=== PATIENT | male | born 1935 | race Caucasian/White ===

== ENCOUNTER → 2017-05-03 | Outpatient (CLI) | payer MEDICARE ==
[2017-05-03 10:29] LABS: Blood Urea Nitrogen 18 mg/dL (9-20); Non-African American GFR(MDRD) >60 (>60 ml/min/1.73 sqM)
--- NOTE | 2017-05-03 12:11 | CT ---
EXAMINATION TYPE: CT urogram wo/w con DATE OF EXAM: 05/03/2017 COMPARISON: NONE HISTORY: Gross hematuria. CT DLP: 2566 mGycm, Automated Exposure Control for Dose Reduction was Utilized. CONTRAST: CT scan of the abdomen and pelvis is performed without oral and without and with IV Contrast, patient injected with 100 mL of Omnipaque 300. Urogram protocol with Three-D reconstructed images created on independent workstation and reviewed. FINDINGS: KUB: Noncontrast images show no renal calculi bilaterally. Postcontrast images show symmetric cortica l medullary uptake and excretion from both kidneys without evidence of concerning solid or cystic kristin al mass or hydronephrosis bilaterally. Tiny 3 mm hypodense lesion anteriorly upper pole level left ki dney seen best image 24 series 9 is too small to further characterize per presumed benign. Visualized portion of collecting systems and both ureters show no obvious obstructing mass or calculus. Some po rtions of left mid ureter do not opacify but no obvious soft tissue mass or focal hydroureter is pres ent. Bladder is satisfactorily distended in the midline of pelvis. There is no abnormal intraluminal mass or wall thickening. LUNG BASES: No significant abnormality is appreciated. LIVER/GB: Dependent gallstones are seen in gallbladder.. PANCREAS: No significant abnormality is seen. SPLEEN: No significant abnormality is seen. ADRENALS: Low dense thickening to both adrenal glands favors hyperplasia. BOWEL: Small hiatal hernia is present. Normal-appearing appendix is seen from cecum. PROSTATE/SEMINAL VESICLES: Prostate gland is heterogeneous in appearance and enlarged in size bulging on bladder base, underlying BPH is suspected. Central zone calcifications are seen inferiorly. LYMPH NODES: No greater than 1cm abdominal or pelvic lymph nodes are appreciated. OSSEOUS STRUCTURES: Multilevel moderate spurring throughout the thoracolumbar spine is present. There is moderate multilevel disc space narrowing in the lumbar spine. Facet arthropathy is present lower lumbar levels. Spinal canal effacement or stenosis is most prominent L3-L4 and L4-L5 levels. Moderate joint space loss in both hips is present. OTHER: There is mild atherosclerotic change of infrarenal abdominal aorta. IMPRESSION: 1. No significant finding is seen to account for patient's clinical symptoms of hematuria. Enlarged p rostate gland noted.
== END | disposition home or self-care (01) ==
LOC: RADCTMAIN 09:46
PROVIDERS: ATTEND Urology
DX: N40.0 Benign prostatic hyperplasia without lower urinary tract symptoms (principal)
CPT/HCPCS: 82565; 84520; 74178; 36415; 74400; Q9967